=== PATIENT | male | born 1930 | race Caucasian/White ===

== ENCOUNTER 2017-12-06 19:13 | Emergency (ER) | payer MEDICARE, OTHER ==
[~2017-12-06] VITALS: Ht 162.6 cm; Wt 49.0 kg
[2017-12-06 19:25] VITALS: BP 129/63
== END 2017-12-06 22:57 | disposition home or self-care (01) ==
LOC: ER 19:13
DX: M75.32 Calcific tendinitis of left shoulder (principal)
CPT/HCPCS: 73030; 99284

== ENCOUNTER 2017-12-10 11:22 | Outpatient (CLI) | payer MEDICARE, OTHER ==
[2017-12-10 11:23] VITALS: BP 132/67
== END 2017-12-10 11:48 | disposition home or self-care (01) ==
LOC: ORTHO 11:22
PROVIDERS: ATTEND Nurse Practitioner Family
DX: M75.32 Calcific tendinitis of left shoulder (principal)
CPT/HCPCS: 99213